=== PATIENT | female | born 1995 | race Two or more races ===

== ENCOUNTER → 2025-05-13 | Outpatient (CLI) | payer OTHER | LOC: M EKG 13:06 | PROVIDERS: ATTEND Registered Nurse | DX: R00.2 Palpitations (principal) ==

== ENCOUNTER → 2025-06-02 | Outpatient (CLI) | payer OTHER | LOC: M RAD 10:54 | PROVIDERS: ATTEND Physician Assistant | DX: R06.02 Shortness of breath (principal) ==

== ENCOUNTER 2025-06-18 13:48 | Emergency (ER) | payer OTHER ==
[~2025-06-18] VITALS: Ht 167.6 cm; Wt 84.6 kg
[2025-06-18 13:54] VITALS: TEMP 98
[2025-06-18 15:02] LABS: BASO # 0.0 10^3/uL (0.0-0.2); BASO % 0.2 % (0.0-1.0); EOS # 0.0 10^3/uL (0.0-0.5); EOS % 0.1 % (0.0-3.0); LYMPH # 2.4 10^3/uL (1.5-5.0); LYMPH % 17.0 % (24.0-44.0); MONO # 0.3 10^3/uL (0.0-0.8); MONO % 2.1 % (2.0-8.0); NEUTROPHILS # 11.3 10^3/uL (1.5-8.5); NEUTROPHILS % 80.3 % (36.0-66.0); PLATELET COUNT, AUTOMATED 304 10^3/uL (150-450)
[2025-06-18 15:30] VITALS: BP 122/84
[2025-06-18 15:38] LABS: CALCIUM LEVEL 9.3 MG/DL (8.5-10.1); CARBON DIOXIDE LEVEL 26 MMOL/L (20-31); CHLORIDE LEVEL 105 MMOL/L (98-107); CK-MB VALUE MASS < 1.0 NG/ML (<3.6); CREATININE FOR GFR 0.61 MG/DL (0.55-1.30); GLOMERULAR FILTRATION RATE > 90.0 (>60); POTASSIUM SERUM 4.1 MMOL/L (3.5-5.1); SODIUM LEVEL 141 MMOL/L (136-145)
[2025-06-18 15:40] LABS: FREE T4 1.02 NG/DL (0.89-1.76)
[2025-06-18 15:41] LABS: CPK CREATINE PHOSPHOKINASE 144 U/L (34-145)
[2025-06-18 15:42] VITALS: O2SAT 99
[2025-06-18 15:45] LABS: HCG, SERUM QUALITATIVE NEGATIVE (NEGATIVE)
== END 2025-06-18 16:48 | disposition left against medical advice (07) ==
LOC: M ED 15:04
DX: G43.909 Migraine, unspecified, not intractable, without status migrainosus (principal); Z53.20 Procedure and treatment not carried out because of patient's decision for unspecified reasons; K51.20 Ulcerative (chronic) proctitis without complications; Z88.6 Allergy status to analgesic agent

== ENCOUNTER → 2025-07-21 | Outpatient (CLI) | payer OTHER ==
[~2025-07-21] MED LIST: METHACHOLINE KIT (6 VIAL.NEB PREMIX) INH ONE
== END ==
LOC: M CARPUL 06-16 10:53
PROVIDERS: ATTEND Physician Assistant
DX: R06.02 Shortness of breath (principal)
CPT/HCPCS: 94070; 95070; J7674